=== PATIENT | male | born 1995 | race Hispanic/Latino ===

== ENCOUNTER 2023-01-02 13:07 | Emergency (ER) | payer SELFPAY ==
[2023-01-02 14:00] LABS: Absolute Lymphocytes (CBC) 1.3 K/uL (0.7-4.9); Hematocrit 44.2 % (39.6-49.0); Lymphocytes % 26.6 % (15.3-44.8); MCV 86.8 fL (80-100); MPV 9.5 fL (7.6-11.3)
[2023-01-02 14:10] LABS: Specific Gravity 1.022 (1.005-1.030); Urine Bilirubin NEGATIVE (Negative); Urine Blood Negative (Negative); Urine Clarity Clear (Clear); Urine Color Light-Yellow (Yellow); Urine Glucose NEGATIVE (Negative); Urine Protein NEGATIVE (Negative); Urine Urobilinogen Normal (Normal); Urine pH 5.5 (5.0-7.0)
[2023-01-02 14:19] LABS: Protime INR 1.05
[2023-01-02 14:32] LABS: Albumin 4.2 g/dL (3.4-5.0); Bilirubin Total 0.9 mg/dL (0.2-1.0); Protein, Total 7.9 g/dL (6.4-8.2)
[2023-01-02] MEDS ORDERED: NA CHLORIDE 0.9% 1,000 ML ONE (14:36)
--- NOTE | 2023-01-02 16:28 | RAD REPORT ---
EXAM DESCRIPTION: CT - Abdomen Pelvis W Contrast - 01/02/2023 3:58 pm CLINICAL HISTORY: blood in stool;Abd pain COMPARISON: No comparisons TECHNIQUE: Thin cut axial CT imaging of the abdomen and pelvis was performed following intravenous a dministration of 90 mL Isovue 300. Multiplanar reformats were generated and reviewed. All CT scans are performed using dose optimization technique as appropriate and may include automated exposure control or mA/KV adjustment according to patient size. FINDINGS: No suspicious findings in the lung bases. The liver, spleen, and pancreas show no suspicious findings. Gallbladder and biliary tree are also wi thout suspicious finding. Symmetric renal function is seen with no hydronephrosis or suspicious renal mass. No dilated bowel loops or bowel wall thickening. Appendix is unremarkable. No free air, free fluid or inflammatory stranding. No hernia, mass or bulky lymphadenopathy. The urinary bladder is without sig nificant finding. No suspicious bony findings. IMPRESSION: No acute intra-abdominal process.
--- NOTE | 2023-01-02 17:54 | ER ---
Nurse's Notes [facility] Name: Jaden Campos Age: 27 yrs Sex: Male : 1995 Arrival Date: 01/02/2023 Time: 13:07 Bed 7 Private MD: Diagnosis: GI Bleed/ Gastrointestinal hemorrhage, unspecified Presentation: 01/02 13:15 Chief complaint: Bright red rectal bleeding and right sided abdominal pain x 2 days. hb Coronavirus screen: At this time, the client does not indicate any symptoms associated with coronavirus-19. Ebola Screen: No symptoms or risks identified at this time. Initial Sepsis Screen: Does the patient meet any 2 criteria? No. Patient's initial sepsis screen is negative. Does the patient have a suspected source of infection? No. Patient's initial sepsis screen is negative. Risk Assessment: Do you want to hurt yourself or someone else? Patient reports no desire to harm self or others. Onset of symptoms was January 01, 2023. 13:15 Method Of Arrival: Ambulatory hb 13:15 Acuity: YONI 3 hb Historical: - Allergies: 13:16 No Known Allergies; hb - Home Meds: 13:16 None [Active]; hb - PMHx: 13:16 None; hb - PSHx: 13:16 None; hb - Immunization history:: Adult Immunizations up to date. - Social history:: Smoking status: Patient denies any tobacco usage or history of. Screenin:20 [facility] ED Fall Risk Assessment (Adult) History of falling in the last 3 months, aa5 including since admission No falls in past 3 months (0 pts) Confusion or Disorientation No (0 pts) Intoxicated or Sedated No (0 pts) Impaired Gait No (0 pts) Mobility Assist Device Used No (0 pt) Altered Elimination No (0 pt) Score/Fall Risk Level 0 - 2 = Low Risk. Abuse screen: Denies threats or abuse. Nutritional screening: No deficits noted. Tuberculosis screening: No symptoms or risk factors identified. Assessment: 14:20 General: Appears comfortable, Behavior is calm, cooperative. Pain: Complains of pain in aa5 right lateral abdomen Pain currently is 4 out of 10 on a pain scale. Quality of pain is described as aching, Pain began 2-3 days ago. Is continuous. Neuro: Level of Consciousness is awake, alert, obeys commands, Oriented to person, place, time, situation. Cardiovascular: Heart tones S1 S2 present Rhythm is regular. Respiratory: Airway is patent Respiratory effort is even, unlabored, Respiratory pattern is regular, symmetrical. GI: Abdomen is round non-distended, Bowel sounds present X 4 quads. Abd is soft and non tender X 4 quads. Reports bloody stool x 2 months, pt states "today it was just pure bright red blood". Patient currently denies diarrhea, nausea, vomiting. : No signs and/or symptoms were reported regarding the genitourinary system. EENT: No signs and/or symptoms were reported regarding the EENT system. Derm: Skin is pink, warm \\T\\ dry. Musculoskeletal: Range of motion: intact in all extremities. 15:35 Reassessment: Patient is alert, oriented x 3, equal unlabored respirations, skin aa5 warm/dry/pink. Pt ambulatory to restroom, pt able to provide stool specimen. Stool noted to be loose with small amount of bright red blood noted. Stool specimen sent to lab. Pt now waiting on CT scan. . 16:30 Reassessment: Patient is alert, oriented x 3, equal unlabored respirations, skin aa5 warm/dry/pink. 18:10 Reassessment: Patient is alert, oriented x 3, equal unlabored respirations, skin aa5 warm/dry/pink. Vital Signs: 13:15 BP 163 / 93; Pulse 71; Resp 16; Temp 98.3; Pulse Ox 100% on R/A; Weight 81.65 kg; hb Height 5 ft. 10 in. ; Pain 4/10; 14:36 BP 143 / 93; Pulse 69; Resp 16 S; Pulse Ox 100% on R/A; Pain 3/10; aa5 13:15 Body Mass Index 25.83 (81.65 kg, 177.8 cm) hb 13:15 Pain Scale: Adult hb 14:36 Pain Scale: Adult aa5 ED Course: 13:09 Patient arrived in ED. ts1 13:13 Rylan Mckeon PA is PHCP. cp 13:13 Darryl Engel DO is Attending Physician. cp 13:16 Triage completed. hb 13:17 Arm band placed on. hb 13:30 Oral contrast given. mw3 13:35 Initial lab(s) drawn, by me, sent to lab. Inserted saline lock: 20 gauge in right iw antecubital area, using aseptic technique. Blood collected. 13:42 Oral contrast reported to be complete. mw3 13:53 Luna Ya, RN is Primary Nurse. aa5 14:20 Patient has correct armband on for positive identification. Bed in low position. Call aa5 light in reach. Side rails up X 1. 15:59 CT Abd/Pelvis - PO and IV Contrast In Process Unspecified. EDMS 17:48 Shiv Hardin MD is Referral Physician. cp 18:10 No provider procedures requiring assistance completed. IV discontinued, intact, aa5 bleeding controlled, No redness/swelling at site. Pressure dressing applied. Administered Medications: 14:42 Drug: NS 0.9% IV 1000 ml Route: IV; Rate: 1 bolus; Site: right antecubital; aa5 15:35 Follow up: IV Status: Completed infusion; IV Intake: 1000ml aa5 Medication: 14:54 VIS not applicable for this client. aa5 Intake: 15:35 IV: 1000ml; Total: 1000ml. aa5 Outcome: 17:53 Discharge ordered by MD. cp 18:10 Discharged to home ambulatory. aa5 18:10 Condition: stable 18:10 Discharge instructions given to patient, Instructed on discharge instructions, follow up and referral plans. medication usage, Demonstrated understanding of instructions, follow-up care, medications, Prescriptions given X 1. 18:19 Patient left the ED. aa5 Signatures: Dispatcher [employer] EDMS Donna Lorenzo RN RN Luna Ya RN RN aa5 Rylan Mckeon PA PA cp Baxter, Heather, RN RN hb Willis, Michelle mw3 Kiki Covington PAS PAS ts1 Corrections: (The following items were deleted from the chart) 13:41 13:40 Oral contrast given. mw3 mw3
--- NOTE | 2023-01-02 17:54 | EDPHYS ---
Physician Documentation [facility] Name: Jaden Campos Age: 27 yrs Sex: Male : 1995 Arrival Date: 01/02/2023 Time: 13:07 Bed 7 Private MD: ED Physician Darryl Engel HPI: 01/02 13:30 This 27 yrs old Male presents to ER via Ambulatory with complaints of Bloody cp Stools. 13:30 The patient presents to the emergency department with rectal bleeding, a small amount, cp bright red blood with bowel movement, on toilet paper, in toilet bowl. Onset: The symptoms/episode began/occurred 2 day(s) ago. Abdominal pain: described as waxing and waning, located in the right side mid abdomen. Associated signs and symptoms: Pertinent negatives: chest pain, constipation, diarrhea, fever, shortness of breath, syncope. Severity of symptoms: in the emergency department the symptoms are unchanged despite home interventions. 13:30 The patient has not experienced similar symptoms in the past. cp Historical: - Allergies: 13:16 No Known Allergies; hb - Home Meds: 13:16 None [Active]; hb - PMHx: 13:16 None; hb - PSHx: 13:16 None; hb - Immunization history:: Adult Immunizations up to date. - Social history:: Smoking status: Patient denies any tobacco usage or history of. ROS: 13:33 Constitutional: Negative for body aches, chills, fever, poor PO intake, weight loss. cp 13:33 Eyes: Negative for injury, pain, redness, and discharge. cp 13:33 Abdomen/GI: Positive for abdominal pain, rectal bleeding, Negative for vomiting, constipation, anorexia. 13:33 Respiratory: Negative for cough, shortness of breath, wheezing. cp 13:33 ENT: Negative for drainage from ear(s), ear pain, sore throat, difficulty swallowing, cp difficulty handling secretions. 13:33 : Negative for urinary symptoms, pelvic pain, flank pain, testicular pain 13:33 Neuro: Negative for altered mental status, dizziness, headache, syncope, near syncope, weakness. 13:33 All other systems are negative. Exam: 13:35 Constitutional: The patient appears in no acute distress, alert, awake, comfortable, cp non-toxic, well developed, well nourished. 13:35 Head/Face: Normocephalic, atraumatic. cp 13:35 Eyes: Periorbital structures: appear normal, Conjunctiva: normal, no exudate, no injection, Sclera: no appreciated abnormality, Lids and lashes: appear normal, bilaterally. 13:35 ENT: External ear(s): are unremarkable, Nose: is normal, Mouth: Lips: moist, Oral mucosa: pink and intact, moist, Posterior pharynx: is normal, airway is patent, no erythema, no exudate. 13:35 Chest/axilla: Inspection: normal. 13:35 Cardiovascular: Rate: normal, Rhythm: regular. 13:35 Respiratory: the patient does not display signs of respiratory distress, Respirations: normal, no use of accessory muscles, no retractions, labored breathing, is not present, Breath sounds: are clear throughout, no decreased breath sounds, no stridor, no wheezing. 13:35 Abdomen/GI: Inspection: abdomen appears normal, Bowel sounds: active, all quadrants, Palpation: soft, in all quadrants, mild abdominal tenderness, in the right upper quadrant and right lower quadrant, rebound tenderness, is not appreciated, voluntary guarding, is not appreciated, involuntary guarding, is not appreciated. 17:45 : Rectal exam: Stool: brown, hemorrhoid(s), are not appreciated, fissure, is not cp appreciated. Vital Signs: 13:15 BP 163 / 93; Pulse 71; Resp 16; Temp 98.3; Pulse Ox 100% on R/A; Weight 81.65 kg; hb Height 5 ft. 10 in. ; Pain 4/10; 14:36 BP 143 / 93; Pulse 69; Resp 16 S; Pulse Ox 100% on R/A; Pain 3/10; aa5 13:15 Body Mass Index 25.83 (81.65 kg, 177.8 cm) hb 13:15 Pain Scale: Adult hb 14:36 Pain Scale: Adult aa5 MDM: 13:19 Patient medically screened. cp 17:52 Data reviewed: vital signs, nurses notes, lab test result(s), radiologic studies, CT cp scan. 17:52 Differential diagnosis: diverticulitis, hemorrhoids, colitis, anemia. Counseling: I had cp a detailed discussion with the patient and/or guardian regarding: the historical points, exam findings, and any diagnostic results supporting the discharge/admit diagnosis, lab results, radiology results, the need for outpatient follow up, a fresh work wrapper layer, to return to the emergency department if symptoms worsen or persist or if there are any questions or concerns that arise at home. Special discussion: Based on the patient's Hx, exam, and Dx evaluation, there is no indication for emergent surgery or inpatient Tx. It is understood by the patient/guardian that if the Sx's persist or worsen they need to return immediately for re-evaluation. 01/02 13:25 Order name: CBC with Diff; Complete Time: 14:49 cp 01/02 13:25 Order name: CMP; Complete Time: 14:49 cp 01/02 14:49 Interpretation: Normal except: NA 135; GLUC 129; ALT 126; GLOB 3.7. cp 01/02 13:25 Order name: Lipase; Complete Time: 14:49 cp 01/02 13:25 Order name: Urinalysis w/ reflexes; Complete Time: 14:49 cp 01/02 13:25 Order name: PT-INR; Complete Time: 14:49 cp 01/02 13:25 Order name: Ptt, Activated; Complete Time: 14:49 cp 01/02 13:37 Order name: Ova And Parasites cp 01/02 13:37 Order name: Rotavirus Antigen cp 01/02 13:37 Order name: Stool Culture cp 01/02 13:37 Order name: CDIFF cp 01/02 13:25 Order name: CT Abd/Pelvis - PO and IV Contrast; Complete Time: 16:46 cp 01/02 16:46 Interpretation: Report reviewed. cp 01/02 13:25 Order name: IV Saline Lock; Complete Time: 13:38 cp 01/02 13:25 Order name: Labs collected and sent; Complete Time: 13:38 cp Administered Medications: 14:42 Drug: NS 0.9% IV 1000 ml Route: IV; Rate: 1 bolus; Site: right antecubital; aa5 15:35 Follow up: IV Status: Completed infusion; IV Intake: 1000ml aa5 Disposition: 20:16 Co-signature as Attending Physician, Darryl MONROY was immediately available on-site ms3 in the Emergency Department for consultation in the care of the patient. Disposition Summary: 01/02/23 17:53 Discharge Ordered Location: Home cp Problem: new cp Symptoms: have improved cp Condition: Stable cp Diagnosis - GI Bleed/ Gastrointestinal hemorrhage, unspecified cp Followup: cp - With: Shiv Hardin MD - When: 2 - 3 days - Reason: Recheck today's complaints Discharge Instructions: - Discharge Summary Sheet cp - High-Fiber Eating Plan cp - Rectal Bleeding cp - Fiber Content in Foods cp - Lower Gastrointestinal Bleeding cp Forms: - Medication Reconciliation Form cp - Thank You Letter cp - Antibiotic Education cp - Prescription Opioid Use cp - Work release form eb Prescriptions: - dicyclomine 20 mg Oral Tablet - take 1 tablet by ORAL route 3 times per day; 20 tablet; Refills: 0, Product cp Selection Permitted Signatures: Dispatcher [employer] Luna Bradford RN RN aa5 Rylan Mckeon PA PA cp Baxter, Heather RN RN Darryl Engel DO DO ms3 Corrections: (The following items were deleted from the chart) 17:55 17:53 Hemorrhage of anus and rectum cp cp
[2023-01-02 18:32] VITALS: TEMP 98.3; O2SAT 100
[2023-01-02 18:36] VITALS: BP 143/93
[2023-01-02 22:37] LABS: C.diff Antigen/Toxin Ag neg : Tox neg (NEG : NEG)
== END 2023-01-02 18:19 | disposition home or self-care (01) ==
LOC: ER 13:07
DX: K92.2 Gastrointestinal hemorrhage, unspecified (principal)
CPT/HCPCS: 36415; 74177; 80053; 81003; 83690; 85025; 85610; 85730; 87045; 87046; 87177; 87209; 87324; 87425; 96360; 99284; J7030; Q9967